=== PATIENT | male | born 1970 | race American Indian/Alaskan Native ===

== ENCOUNTER 2018-11-09 04:50 | Inpatient (IN) | payer BC, MEDICAID, OTHER ==
[2018-11-09 04:50] VITALS: BMI 29.2
--- NOTE | 2018-11-09 05:49 | ED PDOC ---
HPI: Psych/Substance Abuse Time Seen by Provider: 11/09/18 05:18 Chief Complaint (Nursing): Psychiatric Evaluation Chief Complaint (Provider): Psychiatric Evaluation History Per: Patient History/Exam Limitations: no limitations Onset/Duration Of Symptoms: Days (x2) Additional Complaint(s): Homar Ang is a 48 year old male with a past medical history of sciatica and depression, who presents to the emergency department for a crisis evaluation. Patient self presents for suicidal ideation. He admits to alcohol and cocaine use in the last x3 days. He has had thoughts of committing suicide, with a plan. Patient reports he was going to go to his friends house and use his friend's firearm to kill himself. He denies having any other complaints. PMD: no provder Past Medical History Reviewed: Historical Data, Nursing Documentation, Vital Signs Vital Signs: Last Vital Signs Temp 98.6 F 11/09/18 05:13 Pulse 83 11/09/18 05:13 Resp 16 11/09/18 05:13 BP 125/77 11/09/18 05:13 Pulse Ox 97 11/09/18 05:13 - Medical History PMH: Depression Denies: Diabetes, Hepatitis, HIV, HTN, Seizures, Sexually Transmitted Disease Other PMH: sciatica - Surgical History Surgical History: No Surg Hx - Family History Family History: States: Unknown Family Hx - Immunization History Hx Tetanus Toxoid Vaccination: Yes Hx Influenza Vaccination: Yes Hx Pneumococcal Vaccination: Yes - Home Medications Home Medications: Ambulatory Orders Medication Instructions Recorded No Known Home Med 05/29/18 - Allergies Allergies/Adverse Reactions: Allergies Allergy/AdvReac Type Severity Reaction Status Date / Time aspirin Allergy RASH Verified 05/29/18 12:13 ibuprofen AdvReac VOMITING Verified 05/29/18 12:13 tomato AdvReac ITCHING Verified 05/29/18 12:13 Review of Systems ROS Statement: Except As Marked, All Systems Reviewed And Found Negative Psych: Positive for: Suicidal ideation Physical Exam - Reviewed Nursing Documentation Reviewed: Yes Vital Signs Reviewed: Yes - Physical Exam Appears: Positive for: Non-toxic, No Acute Distress Head Exam: Positive for: ATRAUMATIC, NORMOCEPHALIC Skin: Positive for: Normal Color, Warm, Dry Eye Exam: Positive for: Normal appearance, EOMI, PERRL ENT: Positive for: Normal ENT Inspection Neck: Positive for: Normal, Painless ROM, Supple Cardiovascular/Chest: Positive for: Regular Rate, Rhythm. Negative for: Murmur Respiratory: Positive for: Normal Breath Sounds. Negative for: Respiratory Distress Back: Positive for: Normal Inspection. Negative for: L CVA Tenderness, R CVA Tenderness, Vertebral Tenderness Extremity: Positive for: Normal ROM. Negative for: Pedal Edema, Deformity Neurological/Psych: Positive for: Awake, Alert, Oriented. Negative for: Motor/Sensory Deficits - Laboratory Results Result Diagrams: 11/09/18 05:56 11/09/18 05:56 - ECG O2 Sat by Pulse Oximetry: 97 (RA) Pulse Ox Interpretation: Normal Medical Decision Making Medical Decision Making: Time: 518 Impression: 48 year old male presenting with SI. Plan: --EKG --Alcohol Serum --CMP --Urine Drug screen --Crisis evaluation --1:1 observation --ED urine dipstick --CBC with differential --Urinalysis Time: 0647 --Patient is medical stable for psychiatric disposition. --Patient will be admitted for depression. Scribe Attestation: Documented by Ozzy Dunn, acting as a scribe Leonid Osorio MD. Provider Scribe Attestation: All medical record entries made by the Scribe were at my direction and personally dictated by me. I have reviewed the chart and agree that the record accurately reflects my personal performance of the history, physical exam, medical decision making, and the department course for this patient. I have also personally directed, reviewed, and agree with the discharge instructions and disposition. Disposition - Clinical Impression Clinical Impression: Depression - Patient ED Disposition Is Patient to be Admitted: Yes - Disposition Disposition Time: 06:47 Condition: FAIR - Pt Status Changed To: Hospital Disposition Of: Inpatient - Admit Certification Admit to Inpatient:: After my assessment, the patient will require hospitalization for at least two midnights. This is because of the severity of symptoms shown, intensity of services needed, and/or the medical risk in this patient being treated as an outpatient. - POA Present On Arrival: None
[2018-11-09 06:13] LABS: BASO % 0.8 % (0.0-2.0); EOS # 0.2 K/uL (0.0-0.7); EOS % 4.8 % (0.0-4.0); HEMOGLOBIN 13.7 g/dL (12.0-18.0); LYMPH # 1.2 K/uL (1.0-4.3); LYMPH % 24.3 % (20.0-40.0); MEAN CELL VOLUME 93.1 fl (80.0-94.0); MEAN CORPUSCULAR HEMOGLOBIN 31.3 pg (27.0-31.0); MEAN CORPUSCULAR HGB CONC 33.6 g/dL (33.0-37.0); MEAN PLATELET VOLUME 8.1 fl (7.2-11.7); MONO # 0.4 K/uL (0.0-0.8); MONO % 6.9 % (0.0-10.0); NEUT # 3.3 K/uL (1.8-7.0); NEUT % 63.2 % (50.0-75.0); NRBC % 0.2 % (0.0-0.0); RBC 4.38 Mil/uL (4.40-5.90); RED CELL DISTRIBUTION WIDTH 14.6 % (11.5-14.5); WHITE BLOOD COUNT 5.1 K/uL (4.8-10.8)
[2018-11-09 06:25] LABS: ALBUMIN 4.1 g/dL (3.5-5.0); ALT/SGPT 32 U/L (21-72); AST/SGOT 46 U/L (17-59); BLOOD UREA NITROGEN 12 mg/dl (9-20); CALCIUM 9.1 mg/dL (8.4-10.2); GFR NON-AFRICAN AMERICAN > 60
[2018-11-09 07:07] LABS: SQUAMOUS EPITHIAL 2 /hpf (0-5); URINE BILIRUBIN NEGATIVE (NEGATIVE); URINE BLOOD SMALL (NEGATIVE); URINE CLARITY SLIGHTY-CLOUDY (Clear); URINE COLOR YELLOW (YELLOW); URINE GLUCOSE (UA) NEG (NEGATIVE); URINE LEUKOCYTE ESTERASE TRACE Leu/uL (Negative); URINE PROTEIN 30 mg/dL (NEGATIVE)
[2018-11-09 07:19] LABS: BARBITURATES, UR NEGATIVE (NEGATIVE); BENZODIAZEPINES, UR NEGATIVE (NEGATIVE); OPIATES, UR NEGATIVE (NEGATIVE); PHENCYCLIDINE, UR NEGATIVE (NEGATIVE)
[2018-11-09] MEDS ORDERED: Magnesium Hydroxide Susp 30 ml UD PO PRN (08:35)
[2018-11-09] MEDS ORDERED: DiphenhydrAMINE 50 mg/ml Inj IM PRN (08:35)
[2018-11-09] MEDS ORDERED: Alum-Mag Hydrox-Simethicone Susp (30 mL) PO PRN (08:35)
--- NOTE | 2018-11-09 09:11 | CARD ---
APPROVED REPORT Date of service: 11/09/2018 EKG Measurement Heart [id number] <Conclusion> Sinus bradycardia Otherwise normal ECG
--- NOTE | 2018-11-09 09:29 | RAD ---
Date of service: 11/09/2018 HISTORY: SOB COMPARISON: No prior. FINDINGS: LUNGS: The lungs are well inflated and clear. PLEURA: No pleural effusions or pneumothorax. CARDIOVASCULAR: The heart is normal in size. No aortic atherosclerotic calcifications present. OSSEOUS STRUCTURES: Within normal limits for the patient's age. VISUALIZED UPPER ABDOMEN: Normal. OTHER FINDINGS: None. IMPRESSION: No active pulmonary disease.
--- NOTE | 2018-11-09 12:58 | PCM.PSYCH ---
Initial Psychiatric Evaluation - Initial Psychiatric Evaluation Type of Admission: Voluntary Legal Status: Capacity Patient's Reaction to Hospitalization: HPI: 48 yo male w/ h/o depression, alcohol and cocaine abuse, presents w/ worsening depression w/ suicidal ideation to shoot himself with a gun. He reports that he was binge drinking and smoking crack 4 days ago. +Feelings of hopelessness. +Sleep and appetite disturbances; No AH/VH/paranoia/delusions. No current signs/symptoms of ryann. PPHx: H/o diagnosis of Depression vs Bipolar Disorder, h/o treatment w/ Lexapro, Zoloft, Trazodone, but has not been on any medications for several years; h/o alcohol use disorder; h/o suicide attempt by overdose on sleeping pills 8 years ago; no current psychiatric treatment or medications PMHx: Sciatic nerve pain ALL: Aspirin, Ibuprofen SHx: Homeless, 1-2 cigarettes/day; drank heavily 4 days ago, but denies frequent alcohol use; smoked crack 4 days ago FHx: No known family of mental illness Current Medications: Active Medications Generic Name Dose Route Start Last Admin Trade Name Freq PRN Reason Stop Dose Admin Acetaminophen 650 mg 11/09/18 08:35 Tylenol 325mg Tab PO Q4 PRN Pain, moderate (4-7) Al Hydrox/Mg Hydrox/Simethicone 30 ml 11/09/18 08:35 Maalox Plus 30 Ml PO Q4 PRN Dyspepsia Diphenhydramine HCl 50 mg 11/09/18 08:35 Benadryl IM Q6 PRN Extrapyramidal S/S Unable PO Diphenhydramine HCl 50 mg 11/09/18 08:35 Benadryl PO Q6 PRN Extrapyramidal Symptoms Haloperidol 5 mg 11/09/18 08:35 Haldol PO Q4 PRN Agitation Haloperidol Lactate 5 mg 11/09/18 08:35 Haldol IM Q4 PRN Agitation, Unable to Take PO Lorazepam 2 mg 11/09/18 08:35 Ativan IM Q4 PRN Anxiety/Agitation,Unable PO Lorazepam 2 mg 11/09/18 08:35 Ativan PO Q4 PRN Anxiety/Agitation Magnesium Hydroxide 30 ml 11/09/18 08:35 Milk Of Magnesia PO HS PRN Constipation Past Psychiatric History - Past Psychiatric History Previous Treatment History: Inpatient Pertinent Medical Hx (Current Medical&Sleep Prob, Allergies): Allergies Allergy/AdvReac Type Severity Reaction Status Date / Time aspirin Allergy RASH Verified 05/29/18 12:13 ibuprofen AdvReac VOMITING Verified 05/29/18 12:13 tomato AdvReac ITCHING Verified 05/29/18 12:13 No Known Home Med 05/29/18 Review of Systems - Psychiatric Psychiatric: As Per HPI, Abnormal Sleep Pattern, Anhedonia, Anxiety, Change in Appetite, Depression, Difficulty Concentrating, Hopelessness, Irritability, Mood Swings, Suicidal Ideation Mental Status Examination - Personal Presentation Personal Presentation: Looks stated age - Affect Affect: Constricted, Depressed - Motor Activity Motor Activity: Calm - Reliability in Providing Information Reliability in Providing Information: Fair - Speech Speech: Organized, Coherent - Mood Mood: Depressed - Formal Thought Process Formal Thought Process: No Impairment - Hallucinations/Delusions Additional comments: No AH/VH/paranoia/delusions - Obsessions/Compulsions Obsessions: No Compulsions: No - Cognitive Functions Orientation: Person, Place, Situation, Time Sensorium: Alert Attention/Concentration: Attentive Estimate of Intelligence: Average Judgement: Intact, as evidence by: Insight regarding need for hospitalization Memory: Recent intact, as evidence by: Ability to recall events of the day, Remote intact, as evidenced by: Abilit to recall sig. life events, Remote intact, as evidenced by: Ability to recall historical events - Risk Risk: Suicidal, Diminished functioning - Strength & Assets Inventory Strength & Assets Inventory: Cooperative - Limitations Limitations: Other (Homelessness, Poverty) DSM 5 DX - DSM 5 DSM 5 Diagnosis: Substance Induced Mood Disorder; Alcohol Use Disorder; Cocaine Use Disorder - Recommended/Plan of Treatment Treatment Recommendations and Plan of Treatment: Substance Induced Mood Disorder; Alcohol Use Disorder; Cocaine Use Disorder -Admit to psychiatry unit -Start Lexapro -Individual and group therapy -Psychoeducation -Medicine consult -Disposition planning Projected ELOS: 5-7 days Discharge Plan and Discharge Criteria: Discharge when patient is psychiatrically stable - Smoking Cessation Smoking Cessation Initiated: No Reason for not providing: Patient declined
--- NOTE | 2018-11-09 16:04 | PCM.BM ---
Treatment Plan Problems - Problems identified on initial assessmt knowledge deficit alcohol use Date Initiated: 11/09/18 Time Initiated: 16:09 Assessment reference: HP, NA Status: Active Priority: 1 denial Date Initiated: 11/09/18 Time Initiated: 16:10 Assessment reference: HP, NA Status: Active Priority: 2 defensive coping Date Initiated: 11/09/18 Time Initiated: 16:10 Assessment reference: HP, NA Status: Active Priority: 3 feelings of worthlessness Date Initiated: 11/09/18 Time Initiated: 16:11 Assessment reference: HP, NA Status: Active Priority: 4 altered sleep pattern Date Initiated: 11/09/18 Time Initiated: 16:09 Assessment reference: HP, NA Status: Active Priority: 5 Treatment assets and liabiliti Patient Assests: cooperative, educated, cognitively intact Patient Liabilities: financial problems, substance abuse - Milieu Protocol Maintain good personal hygiene: daily Encourage regular showers, daily Remind patient to perform daily oral care, daily Assist patient to perform ADL's Maintain personal safety: every shift Educate patient to report safety concerns to staff, every shift Monitor environment for contraband/sharps Medication safety: Monitor for expected outcome, potential side effects: every shift, Assess barriers to learning: every shift, Assess readiness for medication education: every shift Milieu Narrative: Substance Induced Mood Disorder; Alcohol Use Disorder; Cocaine Use Disorder -Admit to psychiatry unit -Start Lexapro -Individual and group therapy -Psychoeducation -Medicine consult -Disposition planning Family Contact Family involvement: Famliy/SO not involved Discharge/Continuing Care - Treatment Team Participation Patient/Family/SO Statement: Substance Induced Mood Disorder; Alcohol Use Disorder; Cocaine Use Disorder -Admit to psychiatry unit -Start Lexapro -Individual and group therapy -Psychoeducation -Medicine consult -Disposition planning
[2018-11-09] MEDS: Multivitamin With Minerals Tab PO SCH (17:03)
--- NOTE | 2018-11-09 17:21 | CP.PCM.CON ---
History of Present Illness - History of Present Illness History of Present Illness: 48 yo male with history of alcohol and cocaine abuse admitted to psyche unit because of suicidal ideation Review of Systems - Review of Systems All systems: reviewed and no additional remarkable complaints except (aside from those mentioned above, 12 point system review were negative by me) Past Patient History - Infectious Disease Hx of Infectious Diseases: None - Tetanus Immunizations Tetanus Immunization: Unknown - Past Social History Smoking Status: Former Smoker Chewing Tobacco Use: No Cigar Use: No Alcohol: < 2 Drinks/Day Drugs: Cocaine Home Situation {Lives}: Homeless - CARDIAC Hx Cardiac Disorders: No - PULMONARY Hx Respiratory Disorders: No Hx Tuberculosis: No - NEUROLOGICAL Hx Neurological Disorder: No HX Cerebrovascular Accident: No Hx Seizures: No - HEENT Hx HEENT Problems: No - RENAL Hx Chronic Kidney Disease: No - ENDOCRINE/METABOLIC Hx Endocrine Disorders: No - HEMATOLOGICAL/ONCOLOGICAL Hx Blood Disorders: No Hx Cancer: No Hx Human Immunodeficiency Virus (HIV): No - INTEGUMENTARY Hx Dermatological Problems: No - MUSCULOSKELETAL/RHEUMATOLOGICAL Other/Comment: sciatic nerve pain - GASTROINTESTINAL Hx Gastrointestinal Disorders: No - GENITOURINARY/GYNECOLOGICAL Hx Genitourinary Disorders: No Hx Sexually Transmitted Disorders: No - PSYCHIATRIC Hx Substance Use: Yes - SURGICAL HISTORY Hx Surgeries: No - ANESTHESIA Hx Anesthesia: No Meds Allergies/Adverse Reactions: Allergies Allergy/AdvReac Type Severity Reaction Status Date / Time aspirin Allergy RASH Verified 05/29/18 12:13 ibuprofen AdvReac VOMITING Verified 05/29/18 12:13 tomato AdvReac ITCHING Verified 05/29/18 12:13 - Medications Medications: Current Medications Acetaminophen (Tylenol 325mg Tab) 650 mg PO Q4 PRN PRN Reason: Pain, moderate (4-7) Last Admin: 11/09/18 17:01 Dose: 650 mg Al Hydrox/Mg Hydrox/Simethicone (Maalox Plus 30 Ml) 30 ml PO Q4 PRN PRN Reason: Dyspepsia Diphenhydramine HCl (Benadryl) 50 mg IM Q6 PRN PRN Reason: Extrapyramidal S/S Unable PO Diphenhydramine HCl (Benadryl) 50 mg PO Q6 PRN PRN Reason: Extrapyramidal Symptoms Escitalopram Oxalate (Lexapro) 10 mg PO DAILY SHANI Last Admin: 11/09/18 17:04 Dose: 10 mg Folic Acid (Folic Acid) 1 mg PO DAILY [facility] Last Admin: 11/09/18 17:04 Dose: 1 mg Haloperidol (Haldol) 5 mg PO Q4 PRN PRN Reason: Agitation Haloperidol Lactate (Haldol) 5 mg IM Q4 PRN PRN Reason: Agitation, Unable to Take PO Lorazepam (Ativan) 2 mg IM Q4 PRN PRN Reason: Anxiety/Agitation,Unable PO Lorazepam (Ativan) 2 mg PO Q4 PRN PRN Reason: Anxiety/Agitation Magnesium Hydroxide (Milk Of Magnesia) 30 ml PO HS PRN PRN Reason: Constipation Multivitamins/Minerals (Therapeutic-M Tab) 1 tab PO DAILY [facility] Last Admin: 11/09/18 17:03 Dose: 1 tab Thiamine HCl (Vitamin B1 Tab) 100 mg PO DAILY [facility] Last Admin: 11/09/18 17:04 Dose: 100 mg Physical Exam - Constitutional Appears: No Acute Distress - Head Exam Head Exam: ATRAUMATIC - Eye Exam Eye Exam: absent: Scleral icterus - ENT Exam ENT Exam: Mucous Membranes Moist - Neck Exam Neck exam: Negative for: Meningismus - Respiratory Exam Respiratory Exam: absent: Rales, Rhonchi, Wheezes, Respiratory Distress - Cardiovascular Exam Cardiovascular Exam: REGULAR RHYTHM, +S1, +S2 - GI/Abdominal Exam GI & Abdominal Exam: Soft. absent: Tenderness - Rectal Exam Rectal Exam: Deferred - Neurological Exam Neurological exam: Alert, Oriented x3 - Psychiatric Exam Psychiatric exam: Normal Affect Results - Vital Signs Recent Vital Signs: Last Vital Signs Temp 97.6 F 11/09/18 16:07 Pulse 48 L 11/09/18 16:07 Resp 18 11/09/18 16:07 BP 118/73 11/09/18 16:07 Pulse Ox 100 11/09/18 12:25 - Labs Result Diagrams: 11/09/18 05:56 11/09/18 05:56 Labs: Laboratory Results - last 24 hr 11/09/18 11/09/18 11/09/18 05:56 05:56 05:58 WBC 5.1 RBC 4.38 L Hgb 13.7 Hct 40.8 MCV 93.1 MCH 31.3 H MCHC 33.6 RDW 14.6 H Plt Count 260 MPV 8.1 Neut % (Auto) 63.2 Lymph % (Auto) 24.3 [place] % (Auto) 6.9 Eos % (Auto) 4.8 H Baso % (Auto) 0.8 Neut # (Auto) 3.3 Lymph # (Auto) 1.2 [place] # (Auto) 0.4 Eos # (Auto) 0.2 Baso # (Auto) 0.0 Sodium 140 Potassium 3.5 L Chloride 105 Carbon Dioxide 25 Anion Gap 14 BUN 12 Creatinine 0.9 Est GFR ( Amer) > 60 Est GFR (Non-Af Amer) > 60 POC Glucose (mg/dL) 83 Random Glucose 84 Calcium 9.1 Total Bilirubin 0.9 AST 46 ALT 32 Alkaline Phosphatase 70 Total Protein 8.2 Albumin 4.1 Globulin 4.1 H Albumin/Globulin Ratio 1.0 Urine Color Urine Clarity Urine pH Ur Specific [place] Urine Protein Urine Glucose (UA) Urine Ketones Urine Blood Urine Nitrate Urine Bilirubin Urine Urobilinogen Ur Leukocyte Esterase Urine RBC (Auto) Urine Microscopic WBC Ur Squamous Epith Cells Urine Opiates Screen Urine Methadone Screen Ur Barbiturates Screen Ur Phencyclidine Scrn Ur Amphetamines Screen U Benzodiazepines Scrn U Oth Cocaine Metabols U Cannabinoids Screen Alcohol, Quantitative < 10 11/09/18 11/09/18 06:50 06:50 WBC RBC Hgb Hct MCV MCH MCHC RDW Plt Count MPV Neut % (Auto) Lymph % (Auto) [place] % (Auto) Eos % (Auto) Baso % (Auto) Neut # (Auto) Lymph # (Auto) [place] # (Auto) Eos # (Auto) Baso # (Auto) Sodium Potassium Chloride Carbon Dioxide Anion Gap BUN Creatinine Est GFR ( Amer) Est GFR (Non-Af Amer) POC Glucose (mg/dL) Random Glucose Calcium Total Bilirubin AST ALT Alkaline Phosphatase Total Protein Albumin Globulin Albumin/Globulin Ratio Urine Color Yellow Urine Clarity Slighty-cloudy Urine pH 6.0 Ur Specific [place] 1.029 Urine Protein 30 Urine Glucose (UA) Neg Urine Ketones 20 Urine Blood Small Urine Nitrate Negative Urine Bilirubin Negative Urine Urobilinogen 2.0 Ur Leukocyte Esterase Trace Urine RBC (Auto) 9 H Urine Microscopic WBC 3 Ur Squamous Epith Cells 2 Urine Opiates Screen Negative Urine Methadone Screen Negative Ur Barbiturates Screen Negative Ur Phencyclidine Scrn Negative Ur Amphetamines Screen Negative U Benzodiazepines Scrn Negative U Oth Cocaine Metabols Positive H U Cannabinoids Screen Positive H Alcohol, Quantitative Assessment & Plan (1) Suicidal ideation Status: Acute Comment: psyche is managing
[2018-11-10 03:46] VITALS: O2SAT 97
[2018-11-10 07:36] LABS: BLOOD UREA NITROGEN 13 mg/dl (9-20); CALCIUM 8.7 mg/dL (8.4-10.2); GFR NON-AFRICAN AMERICAN > 60; HDL CHOLESTEROL 47 MG/DL (30-70)
[2018-11-10 07:46] LABS: LDL CHOLESTEROL 51 mg/dL (0-129)
--- NOTE | 2018-11-10 08:30 | PCM.PYCHPN ---
Psychiatric Progress Note - Psychiatric Progress Note Patient seen today, length of contact: Pt evaluated, case discussed w/ team, chart reviewed Patient Chief Complaint: Depression Problems Identified/Issues Discussed: Patient continues to report feeling depressed, anxious and irritable. He reports improved sleep and appetite. He denies acute suicidal ideation/plan/intent. NO AH/VH. He denies adverse effects to Lexapro. Medication Change: No Medical Record Reviewed: Yes Consults ordered or reviewed: Medicine consult Mental Status Examination - Cognitive Function Orientation: Person, Place, Situation, Time Memory: Intact Attention: WNL Concentration: WNL Association: WNL Fund of Knowledge: [facility] Decription of patient's judgement and insights: Fair I/J - Mood Mood: Depressed - Affect Affect: Constricted, Depressed - Formal Thought Process Formal Thought Process: No Impairment Psychotic Thoughts and Behaviors: No AH/VH/paranoia/delusions - Suicidal Ideation Suicidal Ideation: No - Homicidal Ideation Homicidal Ideation: No Goal/Treatment Plan - Goal/Treatment Plan Need for Continued Stay: Severe depression anxiety Progress Toward Problem(s) and Goals/Treatment Plan: Substance Induced Mood Disorder; Alcohol Use Disorder; Cocaine Use Disorder -Continue Lexapro -Individual and group therapy -Psychoeducation -Medicine consult -Disposition planning
[2018-11-10] MEDS: Multivitamin With Minerals Tab PO SCH (08:37)
--- NOTE | 2018-11-11 08:32 | PCM.PYCHPN ---
Psychiatric Progress Note - Psychiatric Progress Note Patient seen today, length of contact: Pt evaluated, case discussed w/ team, chart reviewed Patient Chief Complaint: Depression Problems Identified/Issues Discussed: Patient reports that he is starting to feel less depressed and irritable. He is more goal oriented and discussed possibly moving back to [place] where he has social support. He denies acute suicidal ideation/plan/intent. NO AH/VH. He denies adverse effects to Lexapro. Medication Change: No Medical Record Reviewed: Yes Consults ordered or reviewed: Medicine consult Mental Status Examination - Cognitive Function Orientation: Person, Place, Situation, Time Memory: Intact Attention: WNL Concentration: WNL Association: [facility] Fund of Knowledge: [facility] Decription of patient's judgement and insights: Fair I/J - Mood Mood: Depressed - Affect Affect: Constricted, Depressed - Formal Thought Process Formal Thought Process: No Impairment Psychotic Thoughts and Behaviors: No AH/VH/paranoia/delusions - Suicidal Ideation Suicidal Ideation: No - Homicidal Ideation Homicidal Ideation: No Goal/Treatment Plan - Goal/Treatment Plan Need for Continued Stay: Severe depression anxiety Progress Toward Problem(s) and Goals/Treatment Plan: Substance Induced Mood Disorder; Alcohol Use Disorder; Cocaine Use Disorder -Continue Lexapro -Individual and group therapy -Psychoeducation -Medicine consult -Disposition planning Estimated Date of D/C: 11/13/18
[2018-11-11] MEDS: Multivitamin With Minerals Tab PO SCH (08:44)
[2018-11-12] MEDS: Multivitamin With Minerals Tab PO SCH (08:19)
--- NOTE | 2018-11-12 08:36 | PCM.PYCHPN ---
Psychiatric Progress Note - Psychiatric Progress Note Patient seen today, length of contact: Pt evaluated, case discussed w/ team, chart reviewed Patient Chief Complaint: Depression Problems Identified/Issues Discussed: Patient reports that his mood is improving. He feels less depressed. He is more hopeful and goal oriented. He denies acute suicidal ideation/plan/intent. NO AH/VH. He denies adverse effects to Lexapro. Medication Change: No Medical Record Reviewed: Yes Consults ordered or reviewed: Medicine consult Mental Status Examination - Cognitive Function Orientation: Person, Place, Situation, Time Memory: Intact Attention: WNL Concentration: WNL Association: [facility] Fund of Knowledge: [facility] Decription of patient's judgement and insights: Fair I/J - Mood Mood: Depressed - Affect Affect: Constricted, Depressed - Formal Thought Process Formal Thought Process: No Impairment Psychotic Thoughts and Behaviors: No AH/VH/paranoia/delusions - Suicidal Ideation Suicidal Ideation: No - Homicidal Ideation Homicidal Ideation: No Goal/Treatment Plan - Goal/Treatment Plan Need for Continued Stay: Severe depression anxiety Progress Toward Problem(s) and Goals/Treatment Plan: Substance Induced Mood Disorder; Alcohol Use Disorder; Cocaine Use Disorder -Continue Lexapro -Individual and group therapy -Psychoeducation -Medicine consult -Disposition planning- likely discharge tomorrow if patient continues to improve clinically Estimated Date of D/C: 11/13/18
[2018-11-13 05:17] VITALS: BP 129/81; PULSE 77; RESP 17; TEMP 98.1
--- NOTE | 2018-11-13 08:07 | PCM.PYCHDC ---
Mental Status Examination - Mental Status Examination Orientation: Person, Place, Situation, Time Memory: Intact Mood: Neutral Affect: Broad Speech: Appropriate Attention: WNL Concentration: WNL Association: WNL Fund of Knowledge: WNL Formal Thought Process: No Impairment Description of patient's judgement and insight: Fair I/J Psychotic Thoughts and Behaviors: No AH/VH/paranoia/delusions Suicidal Ideation: No Current Homicidal Ideation?: No Discharge Summary - Discharge Note Reason for Hospitalization: HPI: 48 yo male w/ h/o depression, alcohol and cocaine abuse, presents w/ worsening depression w/ suicidal ideation to shoot himself with a gun. He reports that he was binge drinking and smoking crack 4 days ago. +Feelings of hopelessness. +Sleep and appetite disturbances; No AH/VH/paranoia/delusions. No current signs/symptoms of ryann. PPHx: H/o diagnosis of Depression vs Bipolar Disorder, h/o treatment w/ Lexapro, Zoloft, Trazodone, but has not been on any medications for several years; h/o alcohol use disorder; h/o suicide attempt by overdose on sleeping pills 8 years ago; no current psychiatric treatment or medications PMHx: Sciatic nerve pain ALL: Aspirin, Ibuprofen SHx: Homeless, 1-2 cigarettes/day; drank heavily 4 days ago, but denies frequent alcohol use; smoked crack 4 days ago FHx: No known family of mental illness Consultations:: List each consultation separately and include: 1. Reason for request. 2. Findings. 3. Follow-up Consultations: Medicine consult Summary of Hospital Course include:: 1. Description of specific treatment plan utilized for patients during their course of treatmen. 2. Summarize the time- course for resolution of acute symptoms and/or regressed behaviors. 3. Describe issues identified and worked on during hospitalization. 4. Describe medication utilized. 5. Describe medical problems identified and treated. 6. Reassessment of suicide risk Summary of Hospital Course: Patient was admitted to the psychiatry unit. Individual and group therapy were provided. Psychoeducation provided on the dangers of substance abuse. Patient was stabilized on Lexapro 10 mg PO Daily. He denies acute depression/anxiety/AH/VH/paranoia/delusions/SI/HI. He is psychiatrically stable for discharge at this time. - Diagnosis (1) Substance induced mood disorder Current Visit: Yes Status: Acute (2) Alcohol use disorder Current Visit: Yes Status: Acute (3) Cocaine use disorder Current Visit: Yes Status: Acute - Final Diagnosis (DSM 5) Condition upon Discharge: STABLE DSM 5: Substance Induced Mood Disorder; Alcohol Use Disorder; Cocaine Use Disorder Disposition: HOME/ ROUTINE Follow-up Treatment Plan: Substance Induced Mood Disorder; Alcohol Use Disorder; Cocaine Use Disorder -Continue Lexapro Prescriptions/Medication Reconciliation: Escitalopram [Lexapro] 10 mg PO DAILY #30 tab - Smoking Cessation Smoking Cessation Medication prescribed: No Reason for not providing: Patient declined - Antipsychotic Medications Pt discharged on 2 or more routine antipsychotic medications: No
[2018-11-13] MEDS: Multivitamin With Minerals Tab PO SCH (08:27)
== END 2018-11-13 09:40 | disposition home or self-care (01) | DRG 895 ==
LOC: H.ER 04:50 → H.ERHOLD 06:46 → H.STEP 12:43
PROVIDERS: ADMIT Psychiatry & Neurology Psychiatry; ATTEND Psychiatry & Neurology Psychiatry
PROC: HZ56ZZZ Individual Psychotherapy for Substance Abuse Treatment, Psychoeducation (ICD-10-PCS; principal; 2018-11-09)
DX: F14.94 Cocaine use, unspecified with cocaine-induced mood disorder (principal); R45.851 Suicidal ideations; Z59.0 Homelessness; M54.30 Sciatica, unspecified side; F17.210 Nicotine dependence, cigarettes, uncomplicated; Z88.6 Allergy status to analgesic agent; Z91.018 Allergy to other foods; Z72.89 Other problems related to lifestyle